=== PATIENT | male | born 1955 | race Caucasian/White ===

== ENCOUNTER 2018-08-27 15:24 | Observation (INO) ==
--- NOTE | 2018-08-27 15:55 | XR ---
EXAM DATE: 08/27/2018 12:00 AM EDT AGE/SEX: 63 years / Male INDICATIONS: . Chest discomfort; palpitations. CLINICAL DATA: This is the patient's initial encounter. Patient reports that signs and symptoms have been present for 1 day and indicates a pain score of 0/10. MEDICAL/SURGICAL HISTORY: None. None. COMPARISON: [facility], CHEST SINGLE AP, 04/24/2018. . FINDINGS: PA and lateral views of the chest demonstrate the lungs to be symmetrically aerated without evidence of mass, infiltrate or effusion. The cardiomediastinal contours are unremarkable. Osseous structures are intact. CONCLUSION: Negative examination. Electronically signed by: Jose Meneses MD 08/27/2018 3:54 PM EDT
[2018-08-27 16:03] LABS: Baso # (Auto) 0.1 th/mm3 (0.0-0.2); Eos # (Auto) 0.1 th/mm3 (0.0-0.4); Eos % (Auto) 2.3 % (0.0-4.0); Hemoglobin 16.2 gm/dL (13.0-17.0); Mean Corpuscular HGB Conc 35.2 % (32.0-36.0); Mean Corpuscular Hemoglobin 32.3 pg (27.0-34.0); Mean Corpuscular Volume 91.8 fL (80.0-100.0); Mean Platelet Volume 6.7 fL (7.0-11.0); Mono # (Auto) 0.5 th/mm3 (0.0-0.9); Mono % (Auto) 7.3 % (0.0-8.0); Neut # (Auto) 3.7 th/mm3 (1.8-7.7); Neut % (Auto) 58.4 % (16.0-70.0); Platelet Count 195 th/mm3 (150-450); Red Blood Count 5.01 mil/mm3 (4.50-5.90); Red Cell Distribution Width 13.4 % (11.6-17.2); White Blood Count 6.3 th/mm3 (4.0-11.0)
[2018-08-27] MEDS ORDERED: Labetalol HCl Inj 100 MG/20 ML Vial IV.PUSH ONE ×2 (16:22→16:42)
[2018-08-27] MEDS ORDERED: Aspirin 325 MG Tablet PO ONE (16:24)
[2018-08-27 16:27] LABS: Anion Gap 9 meq/L (5-15); Blood Urea Nitrogen 9 mg/dL (7-18); Calcium 9.2 mg/dL (8.5-10.1); Carbon Dioxide 26.3 meq/L (21.0-32.0); Chloride 107 meq/L (98-107); Glomerular Filtration Rate 75 mL/min (>89); Glucose,Random 130 mg/dL (74-106); Potassium 3.9 meq/L (3.5-5.1); Sodium 142 meq/L (136-145)
--- NOTE | 2018-08-27 17:18 | ED ---
HPI General Chief Complaint: Dizziness Stated Complaint: dizziness/poss cardiac Time Seen by Provider: 08/27/18 16:09 Source: patient Mode of arrival: ambulatory Limitations: no limitations History of Present Illness HPI Narrative: 63-year-old male the presents to the ED for evaluation of dizziness and not feeling well. Per patient this is been ongoing since today. Per patient he feels lightheaded and not like the room spinning. Per patient he has had this before about 2-3 years ago with a never found a source. Per patient he does not take any medications at all. 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 Per patient he came here for evaluation. Per patient he has a slight headache. He denies any chest pain but states that he does feel shortness of breath with exertion. He states that sometimes he gets palpitations but not currently. He did not took anything for this. On aspirin. He denies any history of heart disease in himself but has a history in the family. Denies any drugs or alcohol. No smoking. No recent travel. No injury. No fall. Per patient has had multiple presyncopal-like episodes. Per patient he has been told he had high blood pressure but he states that his blood pressure still fluctuates. He however states that he has never been told his blood pressure is in the 200 systolic. He does not take anything for the blood pressure. The dizziness is worse with standing. Related Data Home Medications Medication Instructions Recorded Confirmed No Known Home Medications 08/27/18 08/27/18 Allergies Allergy/AdvReac Type Severity Reaction Status Date / Time No Known Allergies Allergy Verified 08/27/18 16:26 Review of Systems ROS: all other systems reviewed are negative [facility] Medical History Medical History Loose total knee arthroplasty (Acute) Patient denies medical problems (Acute) Surgical History Surgical History History of appendectomy (Acute) Social History Social History Substance History: No History of Abuse Second Hand Smoke Exposure: No Smoking Status: Never smoker How Often Do You Have a Drink Containing Alcohol: Never Recent Travel in [facility] within the Last 8 Weeks: No Recent Out of Country Travel within the Last 8 Weeks: No Immunization History Tetanus Immunization: >5 Years Hx Influenza Vaccine This Season: No Exam Narrative Exam Narrative: GENERAL: Well appearing SKIN: Focused skin assessment warm/dry. HEAD: Atraumatic. Normocephalic. EYES: Pupils equal and round. No scleral icterus. No injection or drainage. ENT: No nasal bleeding or discharge. Mucous membranes pink and moist. Tongue is midline. No uvula deviation. NECK: Trachea midline. No JVD. CARDIOVASCULAR: Regular rate and rhythm. No murmur appreciated. RESPIRATORY: No accessory muscle use. Clear to auscultation. Breath sounds equal bilaterally. GASTROINTESTINAL: Abdomen soft, non-tender, nondistended. Hepatic and splenic margins not palpable. MUSCULOSKELETAL: No obvious deformities. No clubbing. No cyanosis. No edema. Full range of motion of the upper and lower extremities bilaterally. 2+ pulses bilaterally. NEUROLOGICAL: Awake and alert. No obvious cranial nerve deficits. Motor grossly within normal limits. Normal speech. PSYCHIATRIC: Appropriate mood and affect; insight and judgment normal. Course Initial Documented Vital Signs Temperature 97.1 F L 08/27/18 15:31 Pulse Rate 84 08/27/18 15:31 Respiratory Rate 16 08/27/18 15:31 Blood Pressure 225/120 H 08/27/18 15:31 Pulse Oximetry 95 08/27/18 15:31 Last Documented Vital Signs Temperature 97.1 F L 08/27/18 15:31 Pulse Rate 59 L 08/27/18 17:16 Respiratory Rate 18 08/27/18 17:16 Blood Pressure 151/90 H 08/27/18 17:16 Pulse Oximetry 97 08/27/18 17:16 Medical Decision Making TIMA Attestation TIMA supervised visit: Yes Attestation: I, Dr. Cisneros, have reviewed the advance practice practitioner's documentation and am in agreement, met with the patient face to face, made the diagnosis, and the medical decision making was done by me. *My assessment and Findings: Multiple anginal equivalents present on exam. 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 Primary care and blood pressure management will be important on outpatient basis. MDM Narrative Medical decision making narrative: 63-year-old male the presents to the ED for evaluation of dizziness and shortness of breath. Patient was properly examined and was found to have signs and symptoms concerning for ACS. Patient is very hypertensive on exam. Initially was in the 200 systolic. Now in the 190s but still symptomatic. Patient states having shortness of breath with just walking into the room. Could be cardiac equivalent. Labs and imaging were ordered. Labs and imaging were essentially unremarkable. Patient was initially given nitroglycerin but patient declined because he is having a headache. He was given labetalol with improvement of the blood pressure. Patient was given aspirin as well. Case discussed with my attending Dr Cisneros who evaluated the patient himself and who recommends admission to the chest pain center. Medical Screen Exam Complete: Yes Emergency Medical Condition: Yes Differential Diagnosis Differential Diagnosis: Chest pain versus typical chest pain versus dizziness versus vertigo versus syncope versus hypertensive emergency versus hypertensive urgency versus CVA Medical Records Medical records reviewed: Yes I reviewed the patient's medical records. Lab Data Lab results reviewed: Yes I reviewed the patient's lab results. Lab results narrative: Troponin negative. Result diagrams: 08/27/18 15:44 08/27/18 15:44 Lab Results 08/27/18 08/27/18 Range/Units 15:44 15:44 WBC 6.3 (4.0-11.0) th/mm3 RBC 5.01 (4.50-5.90) mil/mm3 Hgb 16.2 (13.0-17.0) gm/dL Hct 46.0 (39.0-51.0) % MCV 91.8 (80.0-100.0) fL MCH 32.3 (27.0-34.0) pg MCHC 35.2 (32.0-36.0) % RDW 13.4 (11.6-17.2) % Plt Count 195 (150-450) th/mm3 MPV 6.7 L (7.0-11.0) fL Neut % (Auto) 58.4 (16.0-70.0) % Lymph % (Auto) 31.0 (9.0-44.0) % [place] % (Auto) 7.3 (0.0-8.0) % Eos % (Auto) 2.3 (0.0-4.0) % Baso % (Auto) 1.0 (0.0-2.0) % Neut # (Auto) 3.7 (1.8-7.7) th/mm3 Lymph # (Auto) 2.0 (1.0-4.8) th/mm3 [place] # (Auto) 0.5 (0.0-0.9) th/mm3 Eos # (Auto) 0.1 (0.0-0.4) th/mm3 Baso # (Auto) 0.1 (0.0-0.2) th/mm3 WBC Differential . Differential Comment Auto diff final Sodium 142 (136-145) meq/L Potassium 3.9 (3.5-5.1) meq/L Chloride 107 (98-107) meq/L Carbon Dioxide 26.3 (21.0-32.0) meq/L Anion Gap 9 (5-15) meq/L BUN 9 (7-18) mg/dL Creatinine 1.00 (0.60-1.30) mg/dL Estimated GFR 75 L (>89) mL/min Random Glucose 130 H (74-106) mg/dL Calcium 9.2 (8.5-10.1) mg/dL Troponin I Less than 0.02 L (0.02-0.05) ng/mL Imaging Data Attestation: I personally reviewed and interpreted this imaging study as follows : Radiologist's impression: Chest X-Ray 08/27/18 00:00 CONCLUSION: Negative examination. ECG Data Attestation: I personally reviewed and interpreted this ECG as follows: Interpretation: EKG shows sinus rhythm with no sign of acute ischemia or arrhythmia. Ventricular rate of 75 beats per minutes, SD interval of 158 ms read by me and attending. Discharge Plan Discharge Disposition Patient Disposition: 30 Still Patient Discharge Details Diagnosis: Chest pain Physicians Team ED Provider: Basil Cisneros ED Midlevel Provider: Tray Ogden Primary Care Provider: Primary Care Carmen Osorio Attending Provider: Michelle Rojas ED Status: Admitted Observation Patient
[2018-08-27] MEDS ORDERED: Acetaminophen 500 MG Tablet PO PRN (17:56)
--- NOTE | 2018-08-27 18:29 | CT ---
EXAM DATE: 08/27/2018 4:31 PM EDT AGE/SEX: 63 years / Male INDICATIONS: Dizziness. CLINICAL DATA: This is the patient's initial encounter. Patient reports that signs and symptoms have been present for 1 day and indicates a pain score of 0/10. MEDICAL/SURGICAL HISTORY: None. Appendectomy. RADIATION DOSE: 46.95 CTDI (mGy) COMPARISON: No prior exams available for comparison. TECHNIQUE: CT of the head without contrast. Using automated exposure control and adjustment of the mA and/or kV according to patient size, radiation dose was kept as low as reasonably achievable to ob tain optimal diagnostic quality images. DICOM format image data is available electronically for revi ew and comparison. FINDINGS: Cerebrum: The ventricles are normal for age. No evidence of midline shift, mass lesion, hemorrhage or acute infarction. No extraaxial fluid collections are seen. Posterior Fossa: The cerebellum and brainstem are intact. The 4th ventricle is midline. The cerebe llopontine angle is unremarkable. Extracranial: The visualized portion of the orbits is intact. Skull: The calvaria is intact. No evidence of skull fracture. CONCLUSION: Negative noncontrast head CT. . Electronically signed by: Antoine Bernal MD 08/27/2018 6:28 PM EDT
[2018-08-27 20:07] LABS: Creatine Kinase 57 U/L (39-308)
[2018-08-27 23:27] LABS: Creatine Kinase 55 U/L (39-308)
--- NOTE | 2018-08-28 08:16 | ECG ---
Date Performed: 08/27/2018 Time Performed: 15:39:54 PTAGE: 63 years EKG: Sinus rhythm NORMAL ECG NO PREVIOUS TRACING DOCTOR: Michelle Rojas Interpretating Date/Time 08/28/2018 08:15:07
--- NOTE | 2018-08-28 08:19 | ECG ---
Date Performed: 08/27/2018 Time Performed: 23:05:55 PTAGE: 63 years EKG: Sinus rhythm NORMAL ECG ARTIFACT Since PREVIOUS TRACING , no significant change noted PREVIOUS TRACIN08/27/2018 15.39 DOCTOR: Michelle Rojas Interpretating Date/Time 08/28/2018 08:18:09
[2018-08-28 08:49] VITALS: BP 139/89; RESP 16; TEMP 98.3; O2SAT 95
[2018-08-28 09:20] VITALS: PULSE 59
--- NOTE | 2018-08-28 09:31 | P.HPCA ---
History of Present Illness Primary Care Physician: No Primary Care Physician Chief Complaint: Dizziness History of Present Illness: 63 year old male with history of liable blood pressure presents to ER for further evaluation of dizziness and not feeling well. Onset yesterday. Episodes began with headache, feeling dizzy, and followed with "not feeling like myself. " No chest discomfort, but endorses intermittent "heart was racing." Duration 30 minutes. No associated nausea, vomiting, dyspnea, or diaphoresis. No precipitating or relieving factors. Endorses similar discomfort approximately 2 years ago. Was told discomfort related to stress. Endorses current elevated situational stress. Also yesterday while walking dogs he ran after one of the dogs and felt short of breath, which is unusual for him. Recovered quick with rest, no associated chest discomfort or palpations. No recent illness, injury, cough, or fever. Past cardiac testing No recent cardiac testing Social history Liable blood pressure, sometimes elevated, never placed on medication. No known hyperlipidemia, diabetes, or CAD. Nonsmoker. Active, runs daily. . suddenly 5 years ago, at age 55. 2 children, one in college, one in high school. 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 Family history Noncontributory for early onset cardiovascular disease. Father cardiac issues at age 84. - Diagnosis (1) Palpitations (2) Dizziness (3) Situational stress (4) Borderline blood pressure Review of Systems All other systems reviewed negative except as stated in HPI PMFSH - History History Provided By: Patient - Medical History Medical History: Medical History (Last Reviewed 08/27/18 @ 17:15 by TOVA Guzman) Loose total knee arthroplasty Patient denies medical problems - Surgical History Surgical History: Surgical History (Last Reviewed 08/27/18 @ 17:15 by TOVA Guzman) History of appendectomy - Family History Family History: Family History (Last Updated 08/28/18 @ 09:57 by BRYCE Vasquez) Father CAD (coronary artery disease) - Social History I have reviewed the patient's Social History: Yes - Tobacco History Second Hand Smoke Exposure: No Tobacco Use In Past 30 Days: No Smoking Status: Never smoker - Alcohol History How Often Do You Have a Drink Containing Alcohol: Never - Substance Use History Substance History: No History of Abuse - Travel History History of Recent Travel: No Recent Travel in the [place] Within the Last 8 Weeks: No Recent Travel Out of the Country Within the Last 8 Weeks: No - Immunization History Tetanus Immunization: >5 Years Hx Influenza Vaccine This Season: No Medications and Allergies Active Medications: Active Medications Acetaminophen (Tylenol) 500 mg PO Q4H PRN PRN Reason: HEADACHE Hydrocodone Bitart/Acetaminophen ([place] 7.5/325) 1 tab PO Q4H PRN PRN Reason: PAIN SCALE 1 TO 7 Ondansetron HCl (Zofran Inj) 4 mg IV.PUSH Q6H PRN PRN Reason: NAUSEA Sodium Chloride (Ns Flush) 2 ml IV.FLUSH BID KAVITA Last Admin: 08/27/18 21:07 Dose: 2 ml Sodium Chloride (Ns Flush) 2 ml IV.FLUSH PRN PRN PRN Reason: FLUSH AFTER USING IV ACCESS Allergies Allergy/AdvReac Type Severity Reaction Status Date / Time No Known Allergies Allergy Verified 08/27/18 16:26 Home Medications Medication Instructions Recorded Confirmed Type No Known Home Medications 08/27/18 08/27/18 History Exam Vital signs: Vital Signs 08/27/18 15:31 08/27/18 16:24 08/27/18 16:54 Temperature 97.1 F L Pulse Rate 84 71 65 Respiratory Rate 16 18 18 Blood Pressure 225/120 H 195/97 H 175/90 H Pulse Oximetry 95 97 96 08/27/18 17:16 08/27/18 20:00 08/28/18 00:00 Temperature 98.8 F 97.9 F Pulse Rate 59 L 63 63 Respiratory Rate 18 16 17 Blood Pressure 151/90 H 138/83 110/59 L Pulse Oximetry 97 96 95 08/28/18 03:37 08/28/18 08:00 Temperature 98 F 98.3 F Pulse Rate 62 59 L Respiratory Rate 17 16 Blood Pressure 110/63 139/89 Pulse Oximetry 94 L 95 Intake & Output 08/27/18 08/28/18 08/28/18 18:59 06:59 18:59 Weight 86.183 kg 86.183 kg Other: # Voids 1 Date of Last Bowel Movement 08/27/18 08/27/18 # Bowel Movements 1 Weight On Admission 86.183 kg Narrative: GENERAL: Alert WN, WD, NAD, pleasant, male HEAD: NC, AT EYES: Sclera clear, conjunctiva without injection, pupils equal and round ENT: Mucous membranes pink and moist NECK: Supple, no masses, trachea midline CV: RRR, without murmur, rub, gallop, no JVD, S1-S2. RESP: Clear lungs throughout bilateral, no crackles, wheeze, rhonchi, symmetrical chest rise, nonlabored, able to speak in full sentences ABD: Soft, NT, ND, no masses, positive bowel tones EXT: Pulses +2x4, no dependent edema MS: Normal tone x4 extremities, nontender, no obvious deformities, full range of motion NEURO: CN II through CN XII grossly intact, motor strength 5/5, gait WNL PSYCH: A+O x3, pleasant affect, appropriate speech, mood, insight and judgment SKIN: Normal turgor, normal texture, no lesions, no rashes, brisk cap refill, even hair distribution Results 08/27/18 15:44 08/27/18 15:44 Cardiac Enzymes 08/27/18 08/27/18 08/27/18 Range/Units 15:44 19:00 22:38 Troponin I Less than 0.02 L Less than 0.02 L Less than 0.02 L (0.02-0.05) ng/mL CBC 08/27/18 Range/Units 15:44 WBC 6.3 (4.0-11.0) th/mm3 RBC 5.01 (4.50-5.90) mil/mm3 Hgb 16.2 (13.0-17.0) gm/dL Hct 46.0 (39.0-51.0) % Plt Count 195 (150-450) th/mm3 Neut # (Auto) 3.7 (1.8-7.7) th/mm3 Lymph # (Auto) 2.0 (1.0-4.8) th/mm3 [place] # (Auto) 0.5 (0.0-0.9) th/mm3 Eos # (Auto) 0.1 (0.0-0.4) th/mm3 Baso # (Auto) 0.1 (0.0-0.2) th/mm3 Comprehensive Metabolic Panel 08/27/18 Range/Units 15:44 Sodium 142 (136-145) meq/L Potassium 3.9 (3.5-5.1) meq/L Chloride 107 (98-107) meq/L Carbon Dioxide 26.3 (21.0-32.0) meq/L BUN 9 (7-18) mg/dL Creatinine 1.00 (0.60-1.30) mg/dL Calcium 9.2 (8.5-10.1) mg/dL Intake and Output 08/27/18 08/28/18 08/28/18 22:59 06:59 14:59 Other: # Voids 1 Date of Last Bowel Movement 08/27/18 08/27/18 # Bowel Movements 1 Weight 86.183 kg 86.183 kg Weight On Admission 86.183 kg - Imaging and Cardiology Imaging: Impressions Chest X-Ray 08/27/18 00:00 CONCLUSION: Negative examination. Head CT 08/27/18 16:21 CONCLUSION: Negative noncontrast head CT. . EKG interpretations - EKG EKG results cardiology: sinus rhythm, normal axis, normal QRS, normal ST/T Caprini VTE Risk Assessment Caprini VTE Risk Assessment: Moderate/High Risk (score >= 2) Caprini Risk Assessment Model: Point Value = 1 Point Value = 2 Point Value = 3 Point Value = 5 Age 41-60 Minor surgery BMI > 25 kg/m2 Swollen legs Varicose veins or History of unexplained or recurrent spontaneous Oral contraceptives or hormone replacement Sepsis (< 1 month) Serious lung disease, including pneumonia (< 1 month) Abnormal pulmonary function Acute myocardial infarction Congestive heart failure (< 1 month) History of inflammatory bowel disease Medical patient at bed rest Age 61-74 Arthroscopic surgery Major open surgery (> 45 min) Laparoscopic surgery (> 45 min) Malignancy Confined to bed (> 72 hours) Immobilizing plaster cast Central venous access Age >= 75 History of VTE Family history of VTE Factor V Leiden Prothrombin [id number] Lupus anticoagulant Anticardiolipin antibodies Elevated serum homocysteine Heparin-induced thrombocytopenia Other congenital or acquired thrombophilia Stroke (< 1 month) Elective arthroplasty Hip, pelvis, or leg fracture Acute spinal cord injury (< 1 month) Prophylaxis Regimen: Total Risk Factor Score Risk Level Prophylaxis Regimen 0-1 Low Early ambulation 2 Moderate Order ONE of the following: *Sequential Compression Device (SCD) *Heparin 5000 units SQ BID 3-4 Higher Order ONE of the following medications: *Heparin 5000 units SQ TID *Enoxaparin/Lovenox 40 mg SQ daily (WT < 150 kg, CrCl > 30 mL/min) *Enoxaparin/Lovenox 30 mg SQ daily (WT < 150 kg, CrCl > 10-29 mL/min) *Enoxaparin/Lovenox 30 mg SQ BID (WT < 150 kg, CrCl > 30 mL/min) AND/OR *Sequential Compression Device (SCD) 5 or more Highest Order ONE of the following medications: *Heparin 5000 units SQ TID (Preferred with Epidurals) *Enoxaparin/Lovenox 40 mg SQ daily (WT < 150 kg, CrCl > 30 mL/min) *Enoxaparin/Lovenox 30 mg SQ daily (WT < 150 kg, CrCl > 10-29 mL/min) *Enoxaparin/Lovenox 30 mg SQ BID (WT < 150 kg, CrCl > 30 mL/min) AND *Sequential Compression Device (SCD) Assessment and Plan - Assessment (1) Palpitations Code(s): R00.2 - Palpitations Status: Acute Plan: Admitted chest pain center. ACS ruled out 3 sets of EKGs and cardiac enzymes. Seen and evaluated by Dr. Michelle Rojas. Telemetry reviewed from overnight. No arrhythmias. Received with cardiac exercise testing this morning. If unremarkable, plans to discharge home follow-up with primary care provider. (2) Dizziness Code(s): R42 - Dizziness and giddiness Status: Acute Plan: Head CT unremarkable. No acute assessment findings. (3) Situational stress Code(s): F43.9 - Reaction to severe stress, unspecified Status: Chronic Plan: Strongly encouraged adapting stress relieving techniques to reduce stress. Discussed eating a healthy diet, continuing daily activity, obtain social support, and getting enough rest. (4) Borderline blood pressure Code(s): R03.0 - Elevated blood-pressure reading, without diagnosis of hypertension Status: Acute Plan: Endourage H&P: Quality - VTE Deep Vein Thrombosis/Pulmonary Embolism Present on Admission: No
--- NOTE | 2018-08-29 11:28 | TR ---
Date Performed: 08/28/2018 Time Performed: 09:59:41 DOCTOR: Leon Cobos DRUG LIST: CLINICAL HISTORY: CHEST PAIN R/O ACS REASON FOR TEST: REASON FOR ENDING: OBSERVATION: CONCLUSION: Ahrinder protocol completed. stopped sec to exceeding target heart rate and leg fatigue . Maximum OI=575 Target HR Fhhjogfo=045.0% Maximum SU=222/80 Total Exercise Time=4:40. No reprod ches t discomfort. Exertional shortness of breath at peak, resolved during recovery. Slight J point depree jass inferior. Normal bp response. Fair exercise tolerance. Recovery quick and unremarkable. COMMENTS: Conclusion: Normal treadmill exercise. No evidence of ischemia.
== END 2018-08-28 12:07 | disposition home or self-care (01) ==
LOC: NEDA 15:24 → NEPE 15:24 → NEPGCP 19:23
PROVIDERS: ADMIT Internal Medicine Interventional Cardiology; ATTEND Internal Medicine Interventional Cardiology